=== PATIENT | female | born 1960 ===

== ENCOUNTER 2024-09-30 07:54 | Outpatient (CLI) | payer MEDICARE, SELFPAY ==
--- NOTE | 2024-09-30 07:45 | RT.EKG_ITS ---
APPROVED REPORT Exam: Resting ECG Reason for Exam: palpitations Patient Location: O HR:60 bpm ECG Measurements Heart Rate 60 AXIS IN 207 P 26 QRSd 97 QRS -19 QT 436 T 31 QTc 436 Conclusion Sinus rhythm...normal P axis, V-rate 50- 99 Low voltage, precordial leads...precordial leads <1.0mV RSR' in V1 or V2, probably normal variant...small R' only Left ventricular hypertrophy...multiple voltage criteria
== END 2024-09-30 07:55 | disposition home or self-care (01) ==
LOC: DI.CARD 07:54
PROVIDERS: PCP Student in an Organized Health Care Education/Training Program; Visit Provider Registered Nurse
DX: R00.2 Palpitations (principal); I10 Essential (primary) hypertension; I51.7 Cardiomegaly
CPT/HCPCS: 93010

== ENCOUNTER → 2024-09-30 10:45 | Outpatient (BNVA) | payer MEDICARE, SELFPAY | PROVIDERS: PCP Student in an Organized Health Care Education/Training Program; Referring Provider Student in an Organized Health Care Education/Training Program; Visit Provider Registered Nurse | DX: R00.2 Palpitations (principal); I10 Essential (primary) hypertension | CPT/HCPCS: 93005; 99203 ==